=== PATIENT | female | born 1960 | race Caucasian/White ===

== ENCOUNTER 2019-03-28 01:28 | Emergency (ER) | payer MEDICAID ==
[~2019-03-28] VITALS: Ht 152.4 cm; Wt 54.5 kg
--- NOTE | 2019-03-28 01:46 | NUR ---
DIFFICULT TO GATHER HISTORY, PT INTOXICATED.
[2019-03-28] MEDS ORDERED: bacitracin 15gm ointment TP ONE (01:50)
[2019-03-28] MEDS ORDERED: TETanus/Pertussis (Acell)/Diphther VAC/PF (Tdap-Adult) 0.5ml syringe IM ONE (01:50)
[2019-03-28] MEDS ORDERED: amox tr/potassium clavulanate 875/125mg TAB PO ONE (02:30)
[2019-03-28] MEDS ORDERED: ondansetron 4mg rapidly disintigrating tab PO ONE (02:30)
[2019-03-28] MEDS ORDERED: AMOX-419 PO (02:45)
--- NOTE | 2019-03-28 02:54 | NUR ---
Pt stated she would like to go to her mothers house after discharge, Hortensia Shea . Left message for Mother to return call. Pt consented to discussion of Pt condition with mother.
--- NOTE | 2019-03-28 04:01 | NUR ---
Hortensia Ya [phone]
--- NOTE | 2019-03-28 06:32 | NUR ---
Left a message to vincenzo sawyer [phone].
[2019-03-28 07:06] VITALS: BP 135/83
--- NOTE | 2019-03-28 09:21 | NUR ---
MESSAGE LEFT AT FOR PT RE: PRINTED RX WAS LEFT HERE IN ER. ASKED PT TO CALL AND WE CAN CALL INTO PHARM OF CHOICE
--- NOTE | 2019-03-30 15:07 | NUR ---
PT RETURNED CALL REGARDING HER PERSCRIPTION THAT SHE FORGOT ON YESTERDAYS VISIT. PT REQUESTED THAT THE RX BE CALLED INTO [facility]. AUGMENTIN 500-125 TABLET; 1 TAB PO Q12 HRS #20 PHONED TO [facility] REQUESTED.
== END 2019-03-28 07:08 | disposition home or self-care (01) ==
LOC: ER 01:28
DX: S01.511A Laceration without foreign body of lip, initial encounter (principal); Z88.1 Allergy status to other antibiotic agents; Y08.89XA Assault by other specified means, initial encounter; Y93.89 Activity, other specified; Y92.89 Other specified places as the place of occurrence of the external cause; Y99.8 Other external cause status
CPT/HCPCS: 12011; 70450; 70486; 90471; 90715; 99284; J2405

== ENCOUNTER 2021-01-23 10:43 | Emergency (ER) | payer MEDICAID ==
[~2021-01-23] VITALS: Ht 152.4 cm; Wt 87.0 kg
[2021-01-23 11:20] LABS: BASOPHILS # (AUTO) 0.1 X10'3 (0-0.2); BASOPHILS % (AUTO) 0.7 % (0-1); EOSINOPHILS # (AUTO) 0.2 X10'3 (0-0.9); EOSINOPHILS % (AUTO) 1.6 % (0-6); HEMATOCRIT 42.6 % (35.0-45.0); HEMOGLOBIN 14.9 g/dl (12.0-16.0); LYMPHOCYTES # (AUTO) 2.2 X10'3 (1.1-4.8); MEAN CORPUSCULAR VOLUME 91.6 FL (78-98); MEAN PLATELET VOLUME 9.4 FL (7.4-10.4); MONOCYTES # (AUTO) 0.7 X10'3 (0-0.9); MONOCYTES % (AUTO) 6.6 % (2-12); NEUTROPHILS # (AUTO) 7.4 X10'3 (1.8-7.7); NEUTROPHILS % (AUTO) 70.1 % (42-75); PLATELET COUNT 273 X10'3 (140-440); RED BLOOD COUNT 4.65 X10'6 (4.20-5.60); RED CELL DISTRIBUTION WIDTH 13.5 % (11.5-14.5); WHITE BLOOD COUNT 10.6 X10'3 (4.5-11.0)
[2021-01-23 11:32] LABS: ALANINE AMINOTRANSFERASE 108 U/L (12-78); ALBUMIN 3.8 G/DL (3.4-5.0); ALKALINE PHOSPHATASE 139 IU/L (46-116); ANION GAP 10 (8-16); ASPARTATE AMINO TRANSFERASE 73 U/L (10-37); BILIRUBIN,TOTAL 0.4 MG/DL (0.1-1.0); BLOOD UREA NITROGEN 13 MG/DL (7-18); BUN/CREATININE RATIO 14.9 (6.6-38.0); CALCIUM 9.4 MG/DL (8.5-10.1); CHLORIDE 101 MMOL/L (99-107); CREATININE 0.87 MG/DL (0.40-0.90); GLUCOSE 145 MG/DL (70-104); POTASSIUM 3.7 MMOL/L (3.5-5.1); SODIUM 138 MMOL/L (135-145); TOTAL CARBON DIOXIDE 26.7 MMOL/L (24-32); TOTAL PROTEIN 7.6 G/DL (6.4-8.2); eGFR 67 ML/MIN
[2021-01-23 13:16] LABS: CLARITY,URINE CLEAR (Clear); COLOR,URINE STRAW (Yellow); GLUCOSE, URINE NEGATIVE (Neg); KETONES,URINE NEGATIVE (Neg); LEUKOCYTE ESTERASE ,URINE NEGATIVE (Neg); NITRITES, URINE NEGATIVE (Neg); OCCULT BLOOD,URINE NEGATIVE (Neg); PH,URINE 5.5 (4.8-8.0); PROTEIN,URINE NEGATIVE (Neg); UROBILINOGEN,URINE 0.2 E.U/dL (0.2-1.0)
[2021-01-23 13:19] LABS: UA COLLECTION TYPE URINAL
[2021-01-23 13:51] VITALS: BP 170/110
== END 2021-01-23 13:49 | disposition home or self-care (01) ==
LOC: ER 10:43
DX: K62.5 Hemorrhage of anus and rectum (principal); R10.32 Left lower quadrant pain; R10.30 Lower abdominal pain, unspecified; Z98.891 History of uterine scar from previous surgery; Z98.51 Tubal ligation status
CPT/HCPCS: 36415; 74176; 80053; 81003; 85025; 99284; 99285

== ENCOUNTER 2024-03-17 12:23 | Outpatient (CLI) | payer MEDICAID | END 2024-03-17 23:59 | disposition home or self-care (01) | LOC: RAD 12:23 | PROVIDERS: ATTEND Student in an Organized Health Care Education/Training Program | DX: M47.812 Spondylosis without myelopathy or radiculopathy, cervical region (principal); M48.02 Spinal stenosis, cervical region; M43.12 Spondylolisthesis, cervical region | CPT/HCPCS: 72050 ==